=== PATIENT | female | born 1955 | race Caucasian/White ===

== ENCOUNTER 2022-01-09 08:29 | Day surgery (SDC) | payer MEDICAID ==
[~2022-01-09] VITALS: Ht 154.9 cm; Wt 63.5 kg
[2022-01-09] MEDS ORDERED: diphenhydrAMINE 50 MG/ML VIAL ONE (10:24)
[2022-01-09] MEDS ORDERED: fentaNYL citrate 0.05 MG/ML VIAL ONE (10:24)
[2022-01-09] MEDS ORDERED: MIDAZOLAM 5 MG/5 ML VIAL ONE (10:24)
[2022-01-09] MEDS ORDERED: MIDAZOLAM 2 MG/2 ML VIAL ONE (10:51)
[2022-01-09] MEDS ORDERED: fentaNYL citrate 0.05 MG/ML VIAL IVP ONE (12:15)
[2022-01-09] MEDS ORDERED: MIDAZOLAM 5 MG/5 ML VIAL IV ONE (12:15)
== END 2022-01-09 12:00 | disposition home or self-care (01) ==
LOC: MOR 08:29 → MMU 08:30 → MOR 12:00
PROVIDERS: ATTEND Internal Medicine Gastroenterology
DX: K62.5 Hemorrhage of anus and rectum (principal); K63.5 Polyp of colon; K64.8 Other hemorrhoids; K27.9 Peptic ulcer, site unspecified, unspecified as acute or chronic, without hemorrhage or perforation; Z90.710 Acquired absence of both cervix and uterus; Z98.890 Other specified postprocedural states; Z79.899 Other long term (current) drug therapy
CPT/HCPCS: 43239; 45385; 87426; J2250; J3010; J1200